=== PATIENT | male | born 1965 | race African-American/Black ===

== ENCOUNTER 2024-12-04 22:33 | Inpatient (IN) | payer BC ==
[~2024-12-04] VITALS: Ht 182.9 cm; Wt 147.0 kg
[2024-12-04 22:49] VITALS: RESP 35
[2024-12-04 22:58] LABS: BASOPHILS % 0.6 % (0.0-2.0); EOSINOPHILS % 0.2 % (0.0-5.0); HEMATOCRIT. 30.3 % (42.0-52.0); HEMOGLOBIN. 9.9 g/dL (14.0-18.0); LYMPHOCYTES % 14.2 % (20.0-50.0); MEAN CORPUSCULAR HEMOGLOBIN 28.4 pg (28.0-32.0); MEAN CORPUSCULAR HGB CONC 32.5 g/dL (31.0-37.0); MEAN CORPUSCULAR VOLUME 87.4 fL (80.0-94.0); MEAN PLATELET VOLUME 8.1 fl (7.4-10.4); MONOCYTES % 12.4 % (2.0-8.0); NEUTROPHILS % 72.6 % (40.0-76.0); PLATELET 157 x1000/uL (130-400); RED BLOOD CELL COUNT 3.47 mill/uL (4.7-6.1); RED CELL DISTRIBUTION WIDTH 14.7 % (11.6-14.6); WHITE BLOOD COUNT 11.9 x1000/uL (4.5-11.0)
[2024-12-04 23:05] LABS: CHLORIDE 103 mEq/L (98-107); POTASSIUM 3.1 mEq/L (3.5-5.1); SODIUM 138 mEq/L (136-145)
[2024-12-04 23:06] LABS: CALCIUM 8.7 mg/dL (8.7-10.4); CARBON DIOXIDE 26 mEq/L (21-32)
[2024-12-04 23:07] LABS: INR 1.3; PROTHROMBIN TIME 13.6 sec (9.6-11.0)
[2024-12-04 23:11] LABS: CREATININE 1.4 mg/dL (0.6-1.3); GLUCOSE 116 mg/dL (70-105); UREA NITROGEN BLOOD 14 mg/dL (9-23)
[2024-12-04 23:13] LABS: ALANINE AMINOTRANSFERASE 30 IU/L (10-49); ASPARTATE AMINOTRANSFERASE 44 IU/L (<34); BILIRUBIN DIRECT 0.3 mg/dL (<=3.0); BILIRUBIN TOTAL 0.9 mg/dL (0.1-1.0); PROTEIN TOTAL 7.8 g/dL (6.0-8.3)
[2024-12-04 23:18] LABS: LACTIC ACID 2.3 mmol/L (0.4-2.0); TROPONIN I HIGH SENSITIVITY 222 ng/L (3.0-53)
[2024-12-04] MEDS: DILTIAZEM HCL 5MG/ML 5ML VIAL IV ONE (23:24)
[2024-12-04] MEDS: FUROSEMIDE 40MG/4ML VIAL IVP ONE (23:25)
[2024-12-04] MEDS: CEFTRIAXONE 1GM/50ML 50 ML IV ONE (23:33)
[2024-12-04] MEDS: SODIUM CHLORIDE 0.9% (SEPSIS BOLUS) IV ONE (23:44)
[2024-12-04] MEDS ORDERED: IPRATROPIUM/ALBUTEROL 0.5-3(2.5)MG/3ML NEB NEB PRN (23:45)
[2024-12-05] VITALS (17 sets, daily range): BP systolic 107–153; BP diastolic 70–107; PULSE 80–172; RESP 21–36; TEMP 36.7–37.8; O2SAT 81–100
[2024-12-05] MEDS: AZITHROMYCIN 500MG/250ML 250 ML IV ONE (00:04)
[2024-12-05] MEDS: KCL 10MEQ/50ML PREMIX 50 ML IV SCH (01:27)
[2024-12-05 01:51] LABS: TROPONIN I HIGH SENSITIVITY 390 ng/L (3.0-53)
[2024-12-05] MEDS ORDERED: ACETAMINOPHEN 325MG TABLET PO PRN (02:00)
[2024-12-05] MEDS ORDERED: ONDANSETRON HCL 4MG/2ML INJ IV PRN (02:00)
[2024-12-05] MEDS ORDERED: CLONIDINE 0.1MG TABLET PO PRN (02:00)
[2024-12-05] MEDS ORDERED: IPRATROPIUM/ALBUTEROL 0.5-3(2.5)MG/3ML NEB HHN PRN (02:00)
[2024-12-05] MEDS ORDERED: METOPROLOL TARTRATE 25MG TABLET PO SCH ×2 (02:30→09:00)
[2024-12-05 02:43] LABS: BG BASE EXCESS 2.6 mmol/L (-2.0-3.0); BG CARBOXYHEMOGLOBIN 0.2 % (0.5-1.5); BG DEOXYHEMOGLOBIN 0.7 % (0.0-5.0); BG FRACTION INSPIRED OXYGEN 90; BG HCO3 ACT 27.7 mmol/L (21.0-28.0); BG METHEMOGLOBIN 0.1 % (0.5-1.5); BG OXYGEN SATURATION 99.3 % (94.0-98.0); BG PCO2 44.9 mmHg (35.0-48.0); BG PH 7.408 (7.350-7.450); BG PO2 158.5 mmHg (83.0-108.0); BG SAMPLE SITE RIGHT RADIAL; BG TOTAL HEMOGLOBIN 12.5 g/dL (13.5-17.5); BG VENT MODE MASK - BIPAP
[2024-12-05] MEDS: FUROSEMIDE 40MG/4ML VIAL IVP SCH ×2 (03:15→17:31)
[2024-12-05] MEDS: APIXABAN 5 MG TABLET PO SCH (03:16)
[2024-12-05] MEDS: MAGNESIUM 2 G PREMIX 50 ML IV NR (03:16)
[2024-12-05 04:09] LABS: *AMPHETAMINES SCREEN URINE NEGATIVE (NEGATIVE); *BARBITURATES SCREEN URINE NEGATIVE (NEGATIVE); *BENZODIAZEPINES SCREEN URINE NEGATIVE (NEGATIVE); *COCAINE SCREEN URINE NEGATIVE (NEGATIVE); CANNABINOID URINE SCREEN NEGATIVE (NEGATIVE); ECSTASY MDMA SCREEN URINE NEGATIVE (NEGATIVE); METHADONE URINE SCREEN NEGATIVE (NEGATIVE); OPIATES URINE SCREEN NEGATIVE (NEGATIVE); PHENCYCLIDINE URINE SCREEN NEGATIVE (NEGATIVE)
[2024-12-05 04:10] LABS: CLARITY URINE CLEAR (CLEAR); COLOR URINE YELLOW (YELLOW); GLUCOSE URINE NEGATIVE (NEGATIVE); KETONES URINE NEGATIVE (NEGATIVE); LEUKOCYTE ESTERASE URINE NEGATIVE (NEGATIVE); NITRITE URINE NEGATIVE (NEGATIVE); OCCULT BLOOD URINE 1+ (NEGATIVE); PH URINE 5.5 (4.5-8.0); PROTEIN URINE NEGATIVE (NEGATIVE); SPECIFIC GRAVITY URINE 1.009 (1.005-1.030); UROBILINOGEN URINE 0.2 E.U./dL (0.2-1.0)
[2024-12-05 04:45] LABS: BACTERIA URINE NONE SEEN; RBC URINE 0-2 /hpf (0-2); SQUAMOUS EPITHELIAL CELL URINE NONE SEEN /lpf (RARE/1+); WBC URINE 0-2 /hpf (0-2)
[2024-12-05] MEDS: DIGOXIN 500MCG/2ML AMP IV NR (06:37)
[2024-12-05] MEDS: PIPERACILLIN/TAZO 3.375G/50ML 50 ML IV SCH (06:38)
[2024-12-05] MEDS ORDERED: POTASSIUM CHLORIDE 20MEQ/PACKET PO ONE (07:45)
[2024-12-05 08:06] LABS: MEAN CORPUSCULAR HEMOGLOBIN 28.2 pg (28.0-32.0); MEAN CORPUSCULAR HGB CONC 32.8 g/dL (31.0-37.0); MEAN CORPUSCULAR VOLUME 85.8 fL (80.0-94.0); MEAN PLATELET VOLUME 8.1 fl (7.4-10.4); PLATELET 167 x1000/uL (130-400); RED BLOOD CELL COUNT 4.15 mill/uL (4.7-6.1); RED CELL DISTRIBUTION WIDTH 14.9 % (11.6-14.6); WHITE BLOOD COUNT 10.4 x1000/uL (4.5-11.0)
[2024-12-05 08:15] LABS: DIFFERENTIAL COMMENT 1
[2024-12-05 08:16] LABS: HEMATOCRIT. 35.6 % (42.0-52.0); HEMOGLOBIN. 11.7 g/dL (14.0-18.0)
[2024-12-05 08:18] LABS: CHLORIDE 103 mEq/L (98-107); SODIUM 138 mEq/L (136-145)
[2024-12-05 08:19] LABS: CALCIUM 8.2 mg/dL (8.7-10.4); CARBON DIOXIDE 28 mEq/L (21-32)
[2024-12-05] MEDS: FAMOTIDINE 20MG/2ML VIAL IV SCH (08:21)
[2024-12-05] MEDS: FERROUS SULFATE 325MG TABLET PO SCH (08:21)
[2024-12-05] MEDS: POTASSIUM CHLORIDE 20MEQ TABLET SR PO NR (08:21)
[2024-12-05] MEDS: METOPROLOL TARTRATE 25MG TABLET PO SCH (08:22)
[2024-12-05 08:24] LABS: CREATININE 1.3 mg/dL (0.6-1.3); GLUCOSE 111 mg/dL (70-105); TRIGLYCERIDE 83 mg/dL (0-150); UREA NITROGEN BLOOD 13 mg/dL (9-23)
[2024-12-05 08:25] LABS: LDL CHOLESTEROL 100 mg/dL (5-100)
[2024-12-05 08:26] LABS: CHOLESTEROL 156 mg/dL (<200); HDL CHOLESTEROL 34 mg/dL (>55); PHOSPHORUS 2.3 mg/dL (2.5-4.9)
[2024-12-05 08:28] LABS: T4 FREE 1.06 ng/dL (0.89-1.76); THYROID STIMULATING HORMONE 1.72 uIU/mL (0.55-4.78)
[2024-12-05 08:31] LABS: IRON 18 ug/dL (65-175)
[2024-12-05 08:32] LABS: TROPONIN I HIGH SENSITIVITY 481 ng/L (3.0-53)
[2024-12-05 09:00] LABS: BG BASE EXCESS 0.5 mmol/L (-2.0-3.0); BG CARBOXYHEMOGLOBIN 0.1 % (0.5-1.5); BG DEOXYHEMOGLOBIN 2.6 % (0.0-5.0); BG FRACTION INSPIRED OXYGEN 90; BG HCO3 ACT 25.6 mmol/L (21.0-28.0); BG METHEMOGLOBIN 0.1 % (0.5-1.5); BG OXYGEN SATURATION 97.4 % (94.0-98.0); BG OXYHEMOGLOBIN 97.2 % (94.0-98.0); BG PCO2 42.6 mmHg (35.0-48.0); BG PH 7.396 (7.350-7.450); BG PO2 94.6 mmHg (83.0-108.0); BG SAMPLE SITE RIGHT RADIAL; BG TOTAL HEMOGLOBIN 12.4 g/dL (13.5-17.5); BG VENT MODE MASK - BIPAP
[2024-12-05] MEDS ORDERED: DOXYCYCLINE HYCLATE 100 MG/VIAL IV SCH (09:00)
[2024-12-05] MEDS: VANCOMYCIN 2GM PMX (XELLIA) 400 ML IV NR (09:30)
[2024-12-05 10:07] LABS: TOTAL IRON BINDING CAPACITY 395 ug/dl (250-425)
[2024-12-05] MEDS: DOXYCYCLINE 100MG/100ML 100 ML IV SCH (12:05)
[2024-12-05 13:29] LABS: PLATELET ESTIMATE NORMAL
[2024-12-05] MEDS: METHYLPREDNISOLONE SOD SUCC 40MG/ML (ACT-O-VIAL) IV SCH (15:23)
[2024-12-05] MEDS: SPIRONOLACTONE 50MG TABLET PO SCH (16:31)
[2024-12-05] MEDS ORDERED: FUROSEMIDE 40MG/4ML VIAL IVP SCH (17:00)
[2024-12-05] MEDS: DIGOXIN 125MCG TABLET PO SCH (17:32)
[2024-12-05 17:54] LABS: TROPONIN I HIGH SENSITIVITY 284 ng/L (3.0-53)
[2024-12-05] MEDS ORDERED: CEFTRIAXONE 1GM/50ML 50 ML IV SCH (18:00)
[2024-12-05] MEDS: ATORVASTATIN CALCIUM 40MG TABLET PO SCH (20:15)
[2024-12-05] MEDS: FUROSEMIDE 40MG/4ML VIAL IVP NR (21:20)
[2024-12-05] MEDS: METOPROLOL TARTRATE 5MG/5ML VIAL IV NR (21:25)
[2024-12-05] MEDS ORDERED: AMIODARONE 150MG/100ML D5W 100 ML IV NR (21:30)
[2024-12-05] MEDS: VANCOMYCIN 1.25GM/250ML IV SCH (21:59)
[2024-12-06] VITALS (15 sets, daily range): BP systolic 94–152; BP diastolic 68–107; PULSE 91–117; RESP 13–29; TEMP 35.8–36.8; O2SAT 89–99
[2024-12-06] MEDS: IPRATROPIUM/ALBUTEROL 0.5-3(2.5)MG/3ML NEB HHN SCH (08:49)
[2024-12-06 10:19] LABS: BASOPHILS % 0.1 % (0.0-2.0); HEMATOCRIT. 38.5 % (42.0-52.0); HEMOGLOBIN. 12.5 g/dL (14.0-18.0); MEAN CORPUSCULAR HEMOGLOBIN 27.8 pg (28.0-32.0); MEAN CORPUSCULAR HGB CONC 32.5 g/dL (31.0-37.0); MEAN CORPUSCULAR VOLUME 85.6 fL (80.0-94.0); MEAN PLATELET VOLUME 8.4 fl (7.4-10.4); MONOCYTES % 4.7 % (2.0-8.0); NEUTROPHILS % 83.2 % (40.0-76.0); PLATELET 194 x1000/uL (130-400); RED CELL DISTRIBUTION WIDTH 14.9 % (11.6-14.6); WHITE BLOOD COUNT 11.4 x1000/uL (4.5-11.0)
[2024-12-06 10:31] LABS: BG BASE EXCESS 0.9 mmol/L (-2.0-3.0); BG CARBOXYHEMOGLOBIN 0.4 % (0.5-1.5); BG DEOXYHEMOGLOBIN 7.4 % (0.0-5.0); BG FRACTION INSPIRED OXYGEN 40; BG HCO3 ACT 26.7 mmol/L (21.0-28.0); BG METHEMOGLOBIN 0.3 % (0.5-1.5); BG OXYGEN SATURATION 92.5 % (94.0-98.0); BG OXYHEMOGLOBIN 91.9 % (94.0-98.0); BG PCO2 47.1 mmHg (35.0-48.0); BG PH 7.371 (7.350-7.450); BG PO2 62.5 mmHg (83.0-108.0); BG SAMPLE SITE RIGHT RADIAL; BG VENT MODE NASAL CANNULA
[2024-12-06 10:44] LABS: CARBON DIOXIDE 27 mEq/L (21-32); CHLORIDE 102 mEq/L (98-107); POTASSIUM 3.7 mEq/L (3.5-5.1); SODIUM 137 mEq/L (136-145)
[2024-12-06 10:45] LABS: CALCIUM 9.2 mg/dL (8.7-10.4)
[2024-12-06 10:49] LABS: CREATININE 1.3 mg/dL (0.6-1.3)
[2024-12-06 10:50] LABS: GLUCOSE 203 mg/dL (70-105); UREA NITROGEN BLOOD 21 mg/dL (9-23)
[2024-12-06 10:52] LABS: PHOSPHORUS 1.9 mg/dL (2.5-4.9)
[2024-12-06] MEDS: ACETYLCYSTEINE 200MG/ML 20% VIAL 4ML INH SCH (14:02)
[2024-12-06] MEDS: POTASSIUM PHOSPHATE 20 MMOL in DEXT 5% WATER 243.3333 ML IV NR (16:32)
[2024-12-07] VITALS (16 sets, daily range): BP systolic 121–151; BP diastolic 63–98; PULSE 73–110; RESP 14–27; TEMP 36.2–36.7; O2SAT 95–100
[2024-12-07 06:56] LABS: CARBON DIOXIDE 29 mEq/L (21-32); CHLORIDE 100 mEq/L (98-107); POTASSIUM 4.3 mEq/L (3.5-5.1); SODIUM 137 mEq/L (136-145)
[2024-12-07 06:57] LABS: CALCIUM 9.4 mg/dL (8.7-10.4)
[2024-12-07 07:01] LABS: CREATININE 1.5 mg/dL (0.6-1.3)
[2024-12-07 07:02] LABS: GLUCOSE 266 mg/dL (70-105); UREA NITROGEN BLOOD 27 mg/dL (9-23)
[2024-12-07 07:16] LABS: HEMATOCRIT. 37.8 % (42.0-52.0); HEMOGLOBIN. 12.3 g/dL (14.0-18.0); MEAN CORPUSCULAR HEMOGLOBIN 28.2 pg (28.0-32.0); MEAN CORPUSCULAR HGB CONC 32.6 g/dL (31.0-37.0); MEAN CORPUSCULAR VOLUME 86.5 fL (80.0-94.0); MEAN PLATELET VOLUME 8.5 fl (7.4-10.4); PLATELET 211 x1000/uL (130-400); RED BLOOD CELL COUNT 4.37 mill/uL (4.7-6.1); RED CELL DISTRIBUTION WIDTH 15.2 % (11.6-14.6); WHITE BLOOD COUNT 19.3 x1000/uL (4.5-11.0)
[2024-12-07 07:48] LABS: DIFFERENTIAL COMMENT 1
[2024-12-07 08:47] LABS: BG BASE EXCESS 0.7 mmol/L (-2.0-3.0); BG CARBOXYHEMOGLOBIN 0.5 % (0.5-1.5); BG DEOXYHEMOGLOBIN 1.6 % (0.0-5.0); BG FRACTION INSPIRED OXYGEN 40; BG HCO3 ACT 25.7 mmol/L (21.0-28.0); BG METHEMOGLOBIN 0.3 % (0.5-1.5); BG OXYGEN SATURATION 98.4 % (94.0-98.0); BG OXYHEMOGLOBIN 97.6 % (94.0-98.0); BG PCO2 42.4 mmHg (35.0-48.0); BG SAMPLE SITE RIGHT RADIAL; BG TOTAL HEMOGLOBIN 13.2 g/dL (13.5-17.5); BG VENT MODE NASAL CANNULA
[2024-12-07 13:03] LABS: PLATELET ESTIMATE NORMAL
[2024-12-07] MEDS ORDERED: APIX5TAB MT (13:48)
[2024-12-07] MEDS ORDERED: FURO40TA5 MT (13:48)
[2024-12-07] MEDS ORDERED: METO-385 PO (13:48)
[2024-12-07] MEDS ORDERED: POTA10CA93 PO (13:48)
[2024-12-07] MEDS ORDERED: AMLO10TA80 MT (13:48)
[2024-12-07] MEDS: VANCOMYCIN 500MG PREMIX 100 ML IV SCH (22:49)
[2024-12-08] VITALS (10 sets, daily range): BP systolic 105–151; BP diastolic 69–89; PULSE 66–89; RESP 16–22; TEMP 36.3–36.7; O2SAT 93–99
[2024-12-08 11:12] LABS: BASOPHILS % 0.1 % (0.0-2.0); HEMATOCRIT. 36.1 % (42.0-52.0); HEMOGLOBIN. 11.9 g/dL (14.0-18.0); LYMPHOCYTES % 7.6 % (20.0-50.0); MEAN CORPUSCULAR HEMOGLOBIN 28.1 pg (28.0-32.0); MEAN CORPUSCULAR HGB CONC 32.8 g/dL (31.0-37.0); MEAN CORPUSCULAR VOLUME 85.5 fL (80.0-94.0); MEAN PLATELET VOLUME 8.6 fl (7.4-10.4); MONOCYTES % 8.2 % (2.0-8.0); NEUTROPHILS % 84.1 % (40.0-76.0); PLATELET 234 x1000/uL (130-400); RED BLOOD CELL COUNT 4.23 mill/uL (4.7-6.1); RED CELL DISTRIBUTION WIDTH 14.8 % (11.6-14.6); WHITE BLOOD COUNT 16.2 x1000/uL (4.5-11.0)
[2024-12-08 11:13] LABS: BG BASE EXCESS 1.1 mmol/L (-2.0-3.0); BG CARBOXYHEMOGLOBIN 1.1 % (0.5-1.5); BG DEOXYHEMOGLOBIN 7.5 % (0.0-5.0); BG FRACTION INSPIRED OXYGEN 21; BG HCO3 ACT 25.5 mmol/L (21.0-28.0); BG METHEMOGLOBIN 0.3 % (0.5-1.5); BG OXYGEN SATURATION 92.4 % (94.0-98.0); BG OXYHEMOGLOBIN 91.1 % (94.0-98.0); BG PCO2 39.7 mmHg (35.0-48.0); BG PH 7.425 (7.350-7.450); BG PO2 62.8 mmHg (83.0-108.0); BG SAMPLE SITE RIGHT RADIAL; BG TOTAL HEMOGLOBIN 12.3 g/dL (13.5-17.5); BG VENT MODE ROOM AIR
[2024-12-08 11:22] LABS: CHLORIDE 104 mEq/L (98-107); POTASSIUM 3.5 mEq/L (3.5-5.1); SODIUM 140 mEq/L (136-145)
[2024-12-08 11:23] LABS: CALCIUM 9.1 mg/dL (8.7-10.4); CARBON DIOXIDE 29 mEq/L (21-32)
[2024-12-08 11:28] LABS: CREATININE 1.3 mg/dL (0.6-1.3); GLUCOSE 237 mg/dL (70-105); UREA NITROGEN BLOOD 25 mg/dL (9-23)
[2024-12-08] MEDS ORDERED: VANCOMYCIN 1,750 MG in DEXT 5% WATER 500 ML IV SCH (21:00)
[2024-12-09] VITALS: BP 118/66; PULSE 62; RESP 19; TEMP 36.4; O2SAT 96
[2024-12-09 04:00] VITALS: BP 111/79; PULSE 55; RESP 19; TEMP 36.6; O2SAT 100
[2024-12-09 07:03] LABS: CARBON DIOXIDE 31 mEq/L (21-32); CHLORIDE 107 mEq/L (98-107); POTASSIUM 3.3 mEq/L (3.5-5.1); SODIUM 144 mEq/L (136-145)
[2024-12-09 07:04] LABS: CALCIUM 8.9 mg/dL (8.7-10.4)
[2024-12-09 07:06] LABS: BASOPHILS % 0.1 % (0.0-2.0); EOSINOPHILS % 0.4 % (0.0-5.0); HEMATOCRIT. 34.8 % (42.0-52.0); HEMOGLOBIN. 11.5 g/dL (14.0-18.0); LYMPHOCYTES % 23.5 % (20.0-50.0); MEAN CORPUSCULAR HEMOGLOBIN 27.9 pg (28.0-32.0); MEAN CORPUSCULAR HGB CONC 32.9 g/dL (31.0-37.0); MEAN PLATELET VOLUME 8.4 fl (7.4-10.4); MONOCYTES % 12.7 % (2.0-8.0); NEUTROPHILS % 63.3 % (40.0-76.0); PLATELET 231 x1000/uL (130-400); RED CELL DISTRIBUTION WIDTH 14.8 % (11.6-14.6); WHITE BLOOD COUNT 11.7 x1000/uL (4.5-11.0)
[2024-12-09 07:07] LABS: CREATININE 1.3 mg/dL (0.6-1.3)
[2024-12-09 07:08] LABS: GLUCOSE 141 mg/dL (70-105)
[2024-12-09 07:09] LABS: UREA NITROGEN BLOOD 24 mg/dL (9-23)
[2024-12-09 07:11] LABS: PHOSPHORUS 2.9 mg/dL (2.5-4.9)
[2024-12-09 07:57] VITALS: PULSE 85; RESP 18
[2024-12-09 08:00] VITALS: BP 129/76; PULSE 76; RESP 18; TEMP 36.5; O2SAT 97
[2024-12-09] MEDS ORDERED: METO-385 PO (10:31)
[2024-12-09] MEDS ORDERED: APIX5TAB MT (10:31)
[2024-12-09] MEDS ORDERED: FURO-151 MT (10:31)
[2024-12-09] MEDS ORDERED: LIP40 PO (10:31)
[2024-12-09] MEDS ORDERED: ALD50 PO (10:31)
[2024-12-09] MEDS: POTASSIUM CHLORIDE 20MEQ TABLET SR PO SCH (11:00)
[2024-12-09] MEDS: ACETAMINOPHEN 325MG TABLET PO PRN (11:01)
[2024-12-09 12:00] VITALS: BP 149/83; PULSE 63; RESP 18; TEMP 36.5; O2SAT 96
[2024-12-09 12:27] VITALS: BP 149/83; PULSE 63; TEMP 97.6; O2SAT 96
== END 2024-12-09 13:00 | disposition home or self-care (01) | DRG 871 ==
LOC: ER 22:33 → 5EST 12-05 00:36 → EDBEDREQ 12-05 01:22 → EDBEDREQSVC 12-05 01:22 → EDBEDREQTM 12-05 01:22 → 6WST 12-08 12:10
PROVIDERS: ADMIT Internal Medicine; ATTEND Internal Medicine
PROC: 5A09357 Assistance with Respiratory Ventilation, Less than 24 Consecutive Hours, Continuous Positive Airway Pressure (ICD-10-PCS; principal; 2024-12-04)
PROC: 5A09357 Assistance with Respiratory Ventilation, Less than 24 Consecutive Hours, Continuous Positive Airway Pressure (ICD-10-PCS; 2024-12-05)
PROC: 5A09357 Assistance with Respiratory Ventilation, Less than 24 Consecutive Hours, Continuous Positive Airway Pressure (ICD-10-PCS; 2024-12-07)
PROC: 5A09357 Assistance with Respiratory Ventilation, Less than 24 Consecutive Hours, Continuous Positive Airway Pressure (ICD-10-PCS; 2024-12-08)
DX: A41.9 Sepsis, unspecified organism (principal); I21.A1 Myocardial infarction type 2; N17.0 Acute kidney failure with tubular necrosis; J96.01 Acute respiratory failure with hypoxia; J18.9 Pneumonia, unspecified organism; I50.23 Acute on chronic systolic (congestive) heart failure; E87.20 Acidosis, unspecified; I11.0 Hypertensive heart disease with heart failure; R65.20 Severe sepsis without septic shock; I48.91 Unspecified atrial fibrillation; G47.33 Obstructive sleep apnea (adult) (pediatric); Z68.35 Body mass index [BMI] 35.0-35.9, adult; E66.9 Obesity, unspecified; E87.6 Hypokalemia; E83.42 Hypomagnesemia; D64.9 Anemia, unspecified; E78.5 Hyperlipidemia, unspecified; E83.39 Other disorders of phosphorus metabolism; Z79.01 Long term (current) use of anticoagulants; Z79.899 Other long term (current) drug therapy
CPT/HCPCS: 36415; 36600; 71045; 80048; 80061; 80076; 80202; 80305; 81003; 82270; 82375; 82728; 82805; 82962; 83036; 83540; 83550; 83605; 83735; 83880; 84100; 84145; 84300; 84439; 84443; 84484; 85025; 85044; 85379; 87070; 93005; 93306; 93970; 94070; 94640; 94660; 94664; 94760; 97162; 97165; 98960; 99291; A4606; J0282; J0456; J0696; J1160; J1940; J2543; J2919; J3370; J3475; J3480; J3490; J7030; J7060; J7608